=== PATIENT | female | born 1990 | race Caucasian/White ===

== ENCOUNTER 2017-07-30 18:20 | Emergency (ER) | payer OTHER | END 2017-07-30 18:54 | disposition left against medical advice (07) | LOC: ERS 18:20 | DX: Z53.21 Procedure and treatment not carried out due to patient leaving prior to being seen by health care provider (principal) ==

== ENCOUNTER 2018-05-28 17:13 | Emergency (ER) | payer OTHER ==
[2018-05-28 18:19] LABS: #Basophils 0.1 thou/uL (0.0-0.2); #Eosinphils 0.1 thou/uL (0.0-0.7); #Lymphocytes 2.4 thou/uL (1.20-3.40); #Monocytes 0.6 thou/uL (0.11-0.59); #Neutrophils 3.3 thou/uL (1.40-6.50); %Basophils 0.9 % (0.0-1.0); %Eosinophils 1.7 % (0.0-10.0); %Lymphocytes 36.7 % (21.0-51.0); %Neutrophils 51.7 % (42.0-75.0); Hemoglobin 13.6 g/dL (12.0-16.0); Mean Corpuscular HGB CONC 32.4 g/dL (32.0-36.0); Mean Corpuscular Hemoglobin 28.5 pg (27.0-31.0); Mean Corpuscular Volume 87.9 fL (78.0-98.0); Platelet Count 256 thou/uL (130-400); RBC Distribution Width 12.1 % (11.5-14.5); Red Blood Cell (RBC) Count 4.76 mill/uL (4.20-5.40); White Blood Cell (WBC) Count 6.4 thou/uL (4.8-10.8)
[2018-05-28 18:44] LABS: ALT (SGPT) 14 U/L (8-55); AST (SGOT) 14 U/L (5-34); Albumin 4.3 g/dL (3.5-5.0); Alkaline Phosphatase 56 U/L (40-150); Anion Gap 12 mmol/L (10-20); BUN (Urea Nitrogen) 11 mg/dL (7.0-18.7); Bilirubin, Total 0.4 mg/dL (0.2-1.2); Calc. Creatinine Clearance 0 mL/min (70-130); Calcium 9.2 mg/dL (7.8-10.44); Carbon Dioxide 20 mmol/L (22-29); Chloride 108 mmol/L (98-107); Estimated GFR-MDRD 89; Globulin 2.6 g/dL (2.4-3.5); Glucose 96 mg/dL (70-105); Potassium 3.8 mmol/L (3.5-5.1); Protein, Total 6.9 g/dL (6.0-8.3); Sodium 136 mmol/L (136-145)
[2018-05-28 19:47] LABS: Bilirubin Negative (Negative); Blood, Urine Negative (Negative); Clarity CLEAR (Clear); Glucose, Urine (Dipstick) Negative (Negative); Leukocyte Negative (Negative); Nitrite Negative (Negative); Protein, Urine (Dipstick) Negative (Neg-Trace); Urobilinogen 0.2 mg/dL (0.2-1.0)
[2018-05-28 20:15] LABS: BHCG - Serum Negative (NEGATIVE); Pregs Control Background? CLEAR/WHITE (CLR/WHITE); Pregs Control Bar Appear? YES (CONTROL BAR)
== END 2018-05-28 21:15 | disposition home or self-care (01) ==
LOC: ERS 17:13
DX: R11.2 Nausea with vomiting, unspecified (principal); R42 Dizziness and giddiness; F41.9 Anxiety disorder, unspecified; F32.9 Major depressive disorder, single episode, unspecified; Z79.01 Long term (current) use of anticoagulants; Z79.899 Other long term (current) drug therapy
CPT/HCPCS: 36415; 80053; 81003; 84703; 85025; 93005

== ENCOUNTER 2018-11-11 21:01 | Emergency (ER) | payer SELFPAY | END 2018-11-11 21:36 | disposition left against medical advice (07) | LOC: ERS 21:01 | DX: Z53.21 Procedure and treatment not carried out due to patient leaving prior to being seen by health care provider (principal) ==

== ENCOUNTER 2018-11-12 11:39 | Emergency (ER) | payer SELFPAY ==
[2018-11-12] MEDS ORDERED: HYDROcodone/Acetaminophen 7.5/325 mg Tablet ONE (12:50)
[2018-11-12] MEDS ORDERED: Dexamethasone 10 MG/ML VIAL ONE (12:50)
[2018-11-12] MEDS ORDERED: Bicillin LA 1.2 MILLION UNITS/2 ML SYRINGE ONE (12:51)
== END 2018-11-12 13:15 | disposition home or self-care (01) ==
LOC: ERS 11:39
DX: J02.0 Streptococcal pharyngitis (principal); F41.9 Anxiety disorder, unspecified; F17.210 Nicotine dependence, cigarettes, uncomplicated; E28.2 Polycystic ovarian syndrome
CPT/HCPCS: 87430; 96372; J0561; J1100

== ENCOUNTER 2018-12-04 19:50 | Emergency (ER) | payer SELFPAY ==
[2018-12-04] MEDS ORDERED: Dexamethasone 10 MG/ML VIAL ONE (21:26)
== END 2018-12-04 21:33 | disposition home or self-care (01) ==
LOC: ERS 19:50
DX: J02.0 Streptococcal pharyngitis (principal); F17.210 Nicotine dependence, cigarettes, uncomplicated; F41.9 Anxiety disorder, unspecified
CPT/HCPCS: 87081; 87430; 99283; J1100

== ENCOUNTER 2019-04-05 16:20 | Emergency (ER) | payer BC, OTHER ==
[2019-04-05] MEDS ORDERED: Fentanyl 100 MCG/2 ML VIAL ONE (17:13)
[2019-04-05] MEDS ORDERED: Ondansetron PF 4 MG/2 ML Vial ONE (17:13)
[2019-04-05 17:37] LABS: #Eosinphils 0.1 thou/uL (0.0-0.7); #Lymphocytes 1.3 thou/uL (1.20-3.40); #Monocytes 0.7 thou/uL (0.11-0.59); #Neutrophils 10.2 thou/uL (1.40-6.50); %Basophils 0.4 % (0.0-1.0); %Eosinophils 0.4 % (0.0-10.0); %Lymphocytes 10.2 % (21.0-51.0); %Monocytes 5.4 % (0.0-10.0); %Neutrophils 83.6 % (42.0-75.0); Mean Corpuscular HGB CONC 34.4 g/dL (32.0-36.0); Mean Corpuscular Hemoglobin 30.1 pg (27.0-31.0); Mean Corpuscular Volume 87.3 fL (78.0-98.0); Mean Platelet Volume 9.4 fL (7.4-10.4); Platelet Count 243 thou/uL (130-400); RBC Distribution Width 11.8 % (11.5-14.5); Red Blood Cell (RBC) Count 4.65 mill/uL (4.20-5.40); White Blood Cell (WBC) Count 12.2 thou/uL (4.8-10.8)
[2019-04-05 17:57] LABS: ALT (SGPT) 29 U/L (8-55); AST (SGOT) 17 U/L (5-34); Alkaline Phosphatase 42 U/L (40-150); Anion Gap 13 mmol/L (10-20); BUN (Urea Nitrogen) 8 mg/dL (7.0-18.7); Bilirubin, Total 0.3 mg/dL (0.2-1.2); Calc. Creatinine Clearance 0 mL/min (70-130); Calcium 9.1 mg/dL (7.8-10.44); Carbon Dioxide 22 mmol/L (22-29); Chloride 105 mmol/L (98-107); Estimated GFR-MDRD Greater than 90; Globulin 2.8 g/dL (2.4-3.5); Glucose 90 mg/dL (70-105); Lipase 26 U/L (8-78); Potassium 3.8 mmol/L (3.5-5.1); Protein, Total 6.8 g/dL (6.0-8.3); Sodium 136 mmol/L (136-145)
--- NOTE | 2019-04-05 18:18 | ULT ---
EXAM: Abdominal ultrasound complete: HISTORY: Extreme right upper quadrant pain, vomiting COMPARISON: None FINDINGS: The liver appears unremarkable. At least 2 nonmobile nonshadowing echogenic foci within the gallbladder probably polyps. No gallbladd er wall thickening or pericholecystic fluid. Negative Hill's sign. The common bile duct is Within normal limits. Visualized pancreas: Unremarkable. Visualized abdominal aorta: Unremarkable. Visualized IVC: Unremarkable. Visualized spleen: Unremarkable. Visualized kidneys: No evidence for hydronephrosis or solid or cystic mass. No mass, abscess, adenopathy, or abnormal fluid collection or other acute process. IMPRESSION: At least 2 nonmobile nonshadowing echogenic foci within the gallbladder probably polyps. No other sig nificant acute process.
--- NOTE | 2019-04-05 19:33 | ULT ---
Exam: OB ultrasound less than 14 weeks: HISTORY: Pain FINDINGS: There is some heterogeneous thickening of the posterior uterine myometrial region, I'm not certain wh ether this represents an area of contraction or could represent possibly a fibroid. A single viable intrauterine fetus is noted in variable presentation. Placenta is posterior and low l romain and could potentially cover the os at this point. BPD 1.5 cm--12 weeks 1 day Head circumference 5.5 cm--12 weeks 0 days Abdominal circumference 5.2 cm--12 weeks 1 day Femur length 0.7 cm--12 weeks 1 day. Gestational age average 12 weeks 0 days EDC 10/18/2019 IMPRESSION: Early single viable inferior . Some nonspecific heterogeneous thickening of the posterior ut erine wall. Somewhat low-lying posterior placenta. Follow-up examination in several months to evaluate for anatomy as well as evaluate placental p osition.
[2019-04-05 19:56] LABS: Bilirubin Negative (Negative); Blood, Urine Large (Negative); Clarity CLOUDY (Clear); Glucose, Urine (Dipstick) Negative (Negative); Leukocyte Small (Negative); Nitrite Negative (Negative); Protein, Urine (Dipstick) Negative (Neg-Trace); Urobilinogen 0.2 mg/dL (0.2-1.0)
[2019-04-05 20:02] LABS: Bacteria/HPF None Seen HPF (None Seen); Hyaline Casts/LPF 7-10 HYALINE CAST LPF (0-3 Hyaline); Pathc Cast-AUWi Flag 2.04 (0-2.49); RBC/HPF 21-50 HPF (0-3)
== END 2019-04-05 20:54 | disposition home or self-care (01) ==
LOC: ERS 16:20
DX: O99.89 Other specified diseases and conditions complicating pregnancy, childbirth and the puerperium (principal); R10.9 Unspecified abdominal pain; O99.341 Other mental disorders complicating pregnancy, first trimester; F41.9 Anxiety disorder, unspecified; O99.331 Smoking (tobacco) complicating pregnancy, first trimester; F17.210 Nicotine dependence, cigarettes, uncomplicated; Z79.899 Other long term (current) drug therapy; Z3A.12 12 weeks gestation of pregnancy
CPT/HCPCS: 76700; 76815; 80053; 81003; 81015; 83690; 85025; 87086; 96361; 96374; 96375; J2405; J3010

== ENCOUNTER 2019-05-23 14:40 | Outpatient (CLI) | payer OTHER ==
--- NOTE | 2019-05-23 15:46 | ULT ---
Obstetric sonogram HISTORY: evaluation. Second trimester. FINDINGS: Multiple transabdominal sonographic views of the gravid uterus show a single intrauterine g estation in cephalic presentation. Cervix is closed and 4.8 cm. Grade 0 placenta is posterior. spine and kidneys are intact as visualized. Four-chamber heart shows motion at 131 bpm. Amnioti c fluid is within normal limits. No gross intracranial abnormalities. Three-vessel cord shows a normal insertion. Measurements are as follows: Biparietal diameter 17 weeks 4 days. Head circumference 17 weeks 6 days. Abdominal circumference 18 weeks 0 days. Femoral length 17 weeks 2 days. [place]lock 17th percentile. IMPRESSION: Single viable intrauterine gestation with estimated gestational age based on today's sono gram of 17 weeks 5 days.
== END 2019-05-23 14:41 | disposition home or self-care (01) ==
LOC: ULT 14:40
PROVIDERS: ATTEND Family Medicine
DX: Z34.82 Encounter for supervision of other normal pregnancy, second trimester (principal); Z3A.17 17 weeks gestation of pregnancy
CPT/HCPCS: 76805

== ENCOUNTER 2019-06-02 11:15 | Day surgery (SDC) | payer OTHER ==
[2019-06-02 11:38] VITALS: BMI 26.5
[2019-06-02] MEDS ORDERED: hydrALAZINE 20 MG/ML VIAL SLOW IVP PRN (12:01)
--- NOTE | 2019-06-02 12:36 | ER ---
DATE OF SERVICE: 06/02/2019 TIME OF SERVICE: 12 noon. PRESENTING COMPLAINT: Lower back pain with a history of sciatica, at 20 weeks' gestation. HISTORY OF PRESENT ILLNESS: Ms. Mac Bean is a 28-year-old, 2, para 1, sees Dr. Donnie Bedoya at [facility]. She reports several weeks of worsening lower back pain, greater on the right than left. It has been told she has sacroiliac or sciatic issues. She has seen a chiropractor and received adjustments, which resulted in 2 days of relief of her pain. 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 She denies dysuria, bleeding, or rupture of membranes. She denies prior musculoskeletal issues, although she has a family history of fibromyalgia. 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 EDC is 10/21. She has had a spontaneous vaginal delivery x1. PAST MEDICAL HISTORY: None. PAST SURGICAL HISTORY: None. ALLERGIES: 1. PENICILLIN. 2. SULFISOXAZOLE. 3. WATERMELON. MEDICATIONS: vitamins. SOCIAL HISTORY: Denies tobacco, alcohol, or drug abuse. FAMILY HISTORY: Noncontributory. REVIEW OF SYSTEMS: Noncontributory. PHYSICAL EXAMINATION: GENERAL: White female, in no acute distress. VITAL SIGNS: Blood pressure 118/72, pulse 85, respirations 18, temperature 97.9. HEENT: Within normal limits. LUNGS: Clear to auscultation bilaterally. HEART: Regular rate and rhythm. ABDOMEN: Soft and nontender with a fundal height of 20 and FHTs of 150. BACK: She has no CVA tenderness noted. PELVIC: The patient points to point tenderness along her SI joints bilaterally as well as her symphysis pubis and the area of the round ligament on her left. VULVA: Without lesions. VAGINAL: Deferred. EXTREMITIES: Without clubbing, cyanosis, or edema. IMPRESSION: Musculoskeletal pain without obvious neurologic deficit at 20 weeks' gestation. PLAN: The patient was reassured regarding the safety of appropriate chiropractic intervention. The patient seems interested in short and/or long-term disability with her job. I informed the patient that unfortunately as an emergency provider, I would not be able to provide help with this, but that if she was interested, she should follow up with Dr. Bedoya. I encouraged followup and conversation with Dr. Bedoya about chiropractic, physical therapy, local heat therapy, and appropriate analgesics for pain during . Job ID: [id number]
== END 2019-06-02 12:02 | disposition home or self-care (01) ==
LOC: L&D/OP 11:15 → EDSTATUS 11:26 → L&D/OP 12:02
PROVIDERS: ATTEND Family Medicine
DX: O99.89 Other specified diseases and conditions complicating pregnancy, childbirth and the puerperium (principal); R10.31 Right lower quadrant pain; O99.332 Smoking (tobacco) complicating pregnancy, second trimester; F17.210 Nicotine dependence, cigarettes, uncomplicated; Z3A.20 20 weeks gestation of pregnancy; Z88.0 Allergy status to penicillin; Z88.2 Allergy status to sulfonamides; Z91.018 Allergy to other foods
CPT/HCPCS: 99282

== ENCOUNTER 2019-07-05 12:42 | Day surgery (SDC) | payer BC, OTHER ==
[2019-07-05] MEDS ORDERED: hydrALAZINE 20 MG/ML VIAL SLOW IVP PRN (15:04)
--- NOTE | 2019-07-05 16:34 | HP ---
PRIMARY OB: Donnie Bedoya MD. CHIEF COMPLAINT: Abdominal pain. HISTORY OF PRESENT ILLNESS: The patient is a 28-year-old, G2, P1 female with an intrauterine at 24 weeks and 4 days, who is presenting to Labor and Delivery after experiencing some uterine contractions over the course of an hour while at [place] shopping. The patient reports that they getting to be about 7 to 8 minutes apart and she was feeling lightheaded in conjunction with these contractions. She denies any uterine contractions prior to this event, and since coming to the hospital, the patient reports these contractions have disappeared. The patient denies any leaking of fluid or vaginal bleeding. Denies any urinary urgency or frequency. Denies any trauma or fall. Denies any recent illness including fever, cough, headache, significant chest pain or shortness of breath. The patient has been experiencing nausea and isolated vomiting more recently in her , but nothing persistent or severe. The patient denies diarrhea or constipation. She reports that she has been getting a rash on her legs since getting a tattoo. She reports that the rash is mainly on her legs. The patient reports that she has been experiencing some sciatic pains that had improved with chiropractic visit. PAST MEDICAL HISTORY: Anxiety. PAST SURGICAL HISTORY: Negative. ALLERGIES: PENICILLIN, SULFA, AND WATERMELON. MEDICATIONS: vitamins. SOCIAL HISTORY: Denies drug, alcohol, or tobacco use. FAMILY HISTORY: Noncontributory. REVIEW OF SYSTEMS: Per HPI. OB LABS: Unavailable at time of dictation. PHYSICAL EXAMINATION: VITAL SIGNS: Blood pressure is 110/70, heart rate of 90, respiratory rate of 60, temperature 97.7. GENERAL: She appears to be in no acute distress. She is alert, oriented, cooperative, and pleasant to interact. HEENT: Head, normocephalic and atraumatic. LUNGS: Clear to auscultation bilaterally. HEART: Has regular rate and rhythm. ABDOMEN: Gravid, soft, nontender. EXTREMITIES: Nontender, nonedematous. : Exam has been deferred. The patient has no CVA tenderness. No paravertebral tenderness. She does have SI joint tenderness, particularly on the right side. She also has a lot of tenderness in her medial or upper gluteal muscle on the right side. This rash on her lower extremities is very small 1 mm size papular rash that is intermittently found on her lower extremities. No evidence of no excoriations present. No ulcerative lesions. No pustular lesions. heart tracing shows the fetus with a baseline in the 130s with moderate long-term variability, appropriate for a 24-week gestation. Tocometer does not show any contractions. About 15 minutes was spent taking the patient to receive stretching and strengthening exercises for her muscles that may be affecting this sciatica like pain and strengthening her quads. ASSESSMENT AND PLAN: The patient is a 28-year-old female, G2, P1, with an intrauterine at 24 weeks and 4 days, who presented for uterine contractions that she had experienced while grocery shopping that has since dissipated spontaneously. The patient is comfortable going home and has been counseled to perform the stretching/strengthening exercises twice a day to avoid any stretching that causes severe joint pain. The patient plans to return to chiropractor in the near future for another visit. She has an appointment with Dr. Bedoya in a couple weeks. Fetus has reassuring for gestational age. The patient is being discharged home. Job ID: [id number]
== END 2019-07-05 14:15 | disposition home or self-care (01) ==
LOC: L&D/OP 12:42
PROVIDERS: ATTEND Family Medicine
DX: O47.02 False labor before 37 completed weeks of gestation, second trimester (principal); Z3A.24 24 weeks gestation of pregnancy; Z88.0 Allergy status to penicillin; Z88.2 Allergy status to sulfonamides; Z91.018 Allergy to other foods
CPT/HCPCS: 99282

== ENCOUNTER 2019-07-29 16:25 | Emergency (ER) | payer BC, OTHER ==
--- NOTE | 2019-07-29 17:03 | RAD ---
FRONTAL VIEW CHEST: 07/29/19 COMPARISON: 07/29/15. INDICATION: Emergency exam. FINDINGS: There is no consolidation, effusion, or pneumothorax. Cardiac silhouette is normal in size. Osseous s tructures are intact. IMPRESSION: No focal consolidation. POS: [facility]
== END 2019-07-29 17:35 | disposition home or self-care (01) ==
LOC: ERS 16:25
DX: O99.89 Other specified diseases and conditions complicating pregnancy, childbirth and the puerperium (principal); R07.89 Other chest pain; O99.342 Other mental disorders complicating pregnancy, second trimester; F41.9 Anxiety disorder, unspecified; F32.9 Major depressive disorder, single episode, unspecified; Z87.891 Personal history of nicotine dependence; Z3A.28 28 weeks gestation of pregnancy
CPT/HCPCS: 71045; 93005

== ENCOUNTER 2019-07-29 17:46 | Day surgery (SDC) | payer BC, OTHER ==
[2019-07-29 18:16] VITALS: BP 124/57; TEMP 98.6
[2019-07-29 18:25] VITALS: BMI 29.2
[2019-07-29] MEDS ORDERED: hydrALAZINE 20 MG/ML VIAL SLOW IVP PRN (19:02)
--- NOTE | 2019-07-30 09:53 | PRG ---
DATE OF SERVICE: 07/29/2019 PRIMARY ELECT[employer]IANS TOP HELPER: Dr. Donnie Bedoya. CHIEF COMPLAINT: Dizziness and chest pain x1 day. HISTORY OF PRESENT ILLNESS: The patient is a 28-year-old female, G2 and P1, with an intrauterine at 28 weeks' gestation, presenting to the emergency room today after experiencing one episode of chest pain and dizziness while washing dishes. The patient reports that she has had visual changes, felt lightheadedness, feeling faint with numbness over her body, and some of lower abdominal pain. She does admit to a history of anxiety and recognizes that the symptoms at times are related to that. She was concerned because the symptoms began suddenly. She was seen in the ER. Workup in the ER included a chest x-ray, which did not demonstrate any acute findings, a normal EKG, and was diagnosed with anxiety, likely exacerbated with stressors at home. The patient was then brought to Labor and Delivery to evaluate the status of the fetus prior to discharge. Upon arrival, the patient reports the many of her symptoms had nearly resolved. She denied any uterine bleeding, leakage of fluid, any headache, chest pain, shortness of breath, nausea, vomiting, diarrhea. She does report constipation at times. She denies any new rashes, hip problems, knee problems, or muscle weakness. PAST MEDICAL HISTORY: Includes generalized anxiety disorder and history of nephrolithiasis. PAST SURGICAL HISTORY: Negative. SOCIAL HISTORY: Denies drug, alcohol, or tobacco use. ALLERGIES: BACTRIM, PENICILLIN, AND WATERMELON. CURRENT MEDICATIONS: Tylenol 3 for SI joint pain. OBSTETRICS LABORATORY DATA: Unavailable at time of dictation. REVIEW OF SYSTEMS: Per HPI. PHYSICAL EXAMINATION: VITAL SIGNS: Blood pressure 124/57, heart rate of 85, respiratory rate 18, saturating 100% on room air, and temperature 98.6. GENERAL: She appears to be in no acute distress. She is alert, oriented, cooperative, and pleasant to interact with. HEAD: Normocephalic and atraumatic. ABDOMEN: Gravid and soft. EXTREMITIES: Nontender and nonedematous. heart tracing shows the fetus with a baseline in the 140s with moderate long-term variability, appropriate for 28 weeks' gestation. Tocometer, free of any contractions. ASSESSMENT AND PLAN: The patient is a 28-year-old multiparous female with an intrauterine at 28 weeks, who presented to the ER for chest pain and shortness of breath that had been released and here for monitoring of the fetus. There were no obstetric complaints or concerns. The patient has been released with reassurance and has been counseled to follow up with her primary OB as scheduled. Job ID: [id number]
== END 2019-07-29 19:49 | disposition home or self-care (01) ==
LOC: L&D/OP 17:46
PROVIDERS: ATTEND Family Medicine
DX: O99.89 Other specified diseases and conditions complicating pregnancy, childbirth and the puerperium (principal); R42 Dizziness and giddiness; R07.9 Chest pain, unspecified; R06.02 Shortness of breath; R10.30 Lower abdominal pain, unspecified; H53.9 Unspecified visual disturbance; R20.0 Anesthesia of skin; O99.343 Other mental disorders complicating pregnancy, third trimester; F41.1 Generalized anxiety disorder; Z3A.28 28 weeks gestation of pregnancy; Z88.0 Allergy status to penicillin; Z88.2 Allergy status to sulfonamides; Z91.018 Allergy to other foods
CPT/HCPCS: 99282

== ENCOUNTER 2019-09-06 13:37 | Day surgery (SDC) | payer OTHER ==
[2019-09-06 14:07] VITALS: BMI 31.1
[2019-09-06] MEDS ORDERED: hydrALAZINE 20 MG/ML VIAL SLOW IVP PRN (14:50)
--- NOTE | 2019-09-06 14:53 | PDOC.FPROB ---
FMR OB H&P: HPI - History of Present Illness Chief Complaint: dizziness, lightheadedness Indentification: 28 y/o @ 33.4 WGA History of Present Illness: Presents with 1 week of dizziness, lightheadedness, swelling, and intermittent lower abdominal pain. She endorses movement, denies ctx, LOF, vaginal bleeding, vaginal d/c, RUQ pain, vision changes. She does reports headaches when she gets the dizziness. She has had no complications during this , but she checks her BP's regularly. She reports this AM her systolic was 107 and this afternoon it was 130 so she became concerned that this BP was higher and wanted to get checked out. She also reports that she can feel her cervix dilating. Primary Care Physician: Dr. Bedoya FMR OB H&P: Current - Care : 2 Para: 1001 Gestational age: 33.4 FMR OB H&P: History - Past Medical History PMH: None - OB History OB History: 1 prior term - Surgical History Sx History: None - Social History Social History: Denies tobacco, EtOH, or drug use - Family History Family History: Denies FMR OB H&P: Medications - Current Home Medications: Medication Instructions Recorded Confirmed Type Acetaminophen With Codeine 1 tablet PO Q6HR PRN 07/29/19 07/29/19 History [Tylenol with Codeine #3] Allergies/Adverse Reactions: Allergies Allergy/AdvReac Type Severity Reaction Status Date / Time Penicillins Allergy Rash Verified 09/06/19 14:03 sulfamethoxazole Allergy Rash Verified 09/06/19 14:03 [From Bactrim] trimethoprim [From Bactrim] Allergy Rash Verified 09/06/19 14:03 watermelon Allergy Anaphylaxis Verified 09/06/19 14:03 FMR OB H&P: ROS - Review of Systems General: denies: fever/chills, weight/appetite/sleep changes Eyes: denies: vision changes, double vision ENT: denies: nasal congestion, sore throat Cardiovascular: reports: edema. denies: chest pain Respiratory: denies: cough, shortness of breath Gastrointestinal: reports: abdominal pain. denies: nausea Genitourinary (Female): denies: dysuria, hematuria, vaginal discharge, vaginal bleeding, contractions Neurologic: denies: numbness, weakness Integumentary: denies: itching, rash FMR OB H&P: Vital Signs - Maternal Vital signs: BP 104/74, HR 103, RR 16, Temp 97.8 - Heart Tones Baseline: 130 Variability: moderate Acceleration: present Deceleration: absent Hall contractions every: none FMR OB H&P: Physical Exam - Physical Exam General: NAD, awake, alert and oriented HEENT: MMM, conjunctiva clear, grossly normal vision, grossly normal hearing Neck: supple, no LAD Heart: pulses present, no edema General: no respiratory distress Abdomen: soft, gravid Neurological: no clonus, no focal deficit Skin: good tugor, capillary refill <2 seconds - Pelvic Exam SVE: closed/thick/high FMR OB H&P: A/P - Problem List (1) Lightheadedness Current Visit: Yes Status: Acute Code(s): R42 - DIZZINESS AND GIDDINESS Assessment and Plan: Pt reports dizziness and lightheadedness over the past week with associated increased cravings of ice. Vital signs stable with no concern for Pre-eclampsia with normal BP's -Will check CBC to r/o anemia -Encouraged good PO hydration -Reassured pt about normal symptoms of (2) Current Visit: Yes Status: Acute Qualifiers: Weeks of gestation: 33 weeks Qualified Code(s): Z3A.33 - 33 weeks gestation of Assessment and Plan: Cervical check was closed/thick/high -Gave pt labor precautions -Continue routine OB f/u with Dr. Bedoya Disposition: d/c home pending CBC results Discussion: Date/Time: 09/06/19 1450 This H&P was discussed with Dr. Fletcher who agrees with the above documentation and plan. Signature: Loretta Henderson MD, PGY-3
--- NOTE | 2019-09-06 15:06 | HP ---
TIME OF EVALUATION: Roughly 1430 hours to 1445 hours. LOCATION: Labor and Delivery triage bed. CHIEF COMPLAINT: "Possible dilation" and "high blood pressure" at home (130/80). Patient of Dr. Donnie Bedoya. HISTORY OF PRESENT ILLNESS: This is a 28-year-old, G2, P1, at 33 weeks and 4 days, who states that she has been having dizziness for the last couple of days. She has been checking her blood pressure at home, although she does not report that her physician instructed her to do so, nor does she have a history of hypertension. Her blood pressure was 107 systolic to 130 systolic over 80s and she felt that she should be checked out. She also has symptoms of dizziness, but no loss of consciousness or vertigo. She has no visual changes. REVIEW OF SYSTEMS: Complete review of systems was checked and is otherwise negative unless specified in the HPI. PAST MEDICAL HISTORY: Negative. PAST SURGICAL HISTORY: Noncontributory. OB HISTORY: She has had a vaginal delivery in the past. ALLERGIES: PENICILLIN, SULFA, TRIMETHOPRIM, AND SHE STATES THAT SHE IS ALLERGIC TO WATERMELON. PHYSICAL EXAMINATION: VITAL SIGNS: Her blood pressure is 104/74. She is afebrile. Pulse is in the 90s. GENERAL: Clinically, she is in no acute distress. ABDOMEN: Soft and nontender. On perineal inspection, there is no gross evidence of bleeding or leakage of fluid. cervical exam is pending nurse RN check. On the monitor, heart tones in the 130s to 140s and they are reactive. No contraction pattern on tocodynamometer. LABORATORY DATA: Labs ordered, I have ordered a CBC. ASSESSMENT: This is a 28-year-old, G2, P1, at 33 weeks and 4 days with nonspecific symptoms, who thought that she was dilating. She was concerned of her blood pressure from home, but her blood pressure here is normal. PLAN: 1. Reassurance given. 2. No evidence of preeclampsia at this time. 3. We will order a CBC and check her cervix per protocol. 4. No evidence of need for intervention at this time. 5. The patient was seen by Dr. Loretta Henderson as well. I have seen the patient at bedside. Job ID: [id number]
[2019-09-06 15:40] LABS: #Eosinphils 0.1 thou/uL (0.0-0.7); #Monocytes 1.2 thou/uL (0.11-0.59); %Basophils 0.4 % (0.0-1.0); %Eosinophils 1.1 % (0.0-10.0); %Lymphocytes 17.9 % (21.0-51.0); %Monocytes 10.1 % (0.0-10.0); %Neutrophils 70.4 % (42.0-75.0); Hemoglobin 11.4 g/dL (12.0-16.0); Mean Corpuscular HGB CONC 33.8 g/dL (32.0-36.0); Mean Corpuscular Hemoglobin 28.5 pg (27.0-31.0); Mean Corpuscular Volume 84.4 fL (78.0-98.0); Mean Platelet Volume 9.5 fL (7.4-10.4); Platelet Count 237 thou/uL (130-400); RBC Distribution Width 11.7 % (11.5-14.5); Red Blood Cell (RBC) Count 4.01 mill/uL (4.20-5.40); White Blood Cell (WBC) Count 11.3 thou/uL (4.8-10.8)
--- NOTE | 2019-09-06 15:53 | PDOC.BPN ---
- Brief Progress Note CBC came back with no concern for anemia causing her symptoms. Counseled pt about normal signs and symptoms of and to increase PO hydration. Counseled to stand slowly when moving from sitting to standing. Continue f/u with Dr. Bedoya d/c home
== END 2019-09-06 15:55 | disposition home or self-care (01) ==
LOC: EEVIPCON 13:37 → L&D/OP 13:37
PROVIDERS: ATTEND Family Medicine
DX: O99.89 Other specified diseases and conditions complicating pregnancy, childbirth and the puerperium (principal); R42 Dizziness and giddiness; R10.30 Lower abdominal pain, unspecified; Z3A.33 33 weeks gestation of pregnancy; Z88.0 Allergy status to penicillin; Z88.2 Allergy status to sulfonamides; Z88.8 Allergy status to other drugs, medicaments and biological substances; Z91.018 Allergy to other foods
CPT/HCPCS: 36415; 85025

== ENCOUNTER 2019-09-19 20:24 | Inpatient (IN) | payer OTHER ==
[2019-09-19 20:59] VITALS: BMI 31.1
[2019-09-19 21:34] LABS: Amnisure Internal Control QC ACCEPTABLE (ACCEPTABLE); Amnisure Test No Membranes Rupture (No Rupture)
--- NOTE | 2019-09-19 22:44 | PDOC.FPROB ---
FMR OB H&P: HPI - History of Present Illness Chief Complaint: Gush of fluid Indentification: at 35 weeks History of Present Illness: 28 yo at ~35.4 weeks here for gush of fluid. Around 5 pm, sneezed and gush of fluid that soaked through her pants. Since then has felt she has been leaking. Denies VB/VD. Completed monostat course for yeast infection 6 weeks ago , since then no issues. Denies CTX, endorses FM. No other concerns at this time. Primary Care Physician: Dr. Bedoya FMR OB H&P: Current - Care : 2 Para: 1 Gestational age: 35.4 Due date: 10/20/19 - OB Labs Blood type: unknown RH: unknown Antibody Screen: unknown HIV: unknown RPR: unknown HepBsAg: unknown Quad screen: unknown Urine drug screen: not done Gonorrhea: unknown Chlamydia: unknown GBS: unknown FMR OB H&P: History - Past Medical History PMH: Right sciatic nerve pain, chronic - OB History OB History: 1. Term at 39 weeks - Surgical History Sx History: None - Social History Social History: Denies TAD FMR OB H&P: Medications - Current Allergies/Adverse Reactions: Allergies Allergy/AdvReac Type Severity Reaction Status Date / Time Penicillins Allergy Rash Verified 09/06/19 14:03 sulfamethoxazole Allergy Rash Verified 09/06/19 14:03 [From Bactrim] trimethoprim [From Bactrim] Allergy Rash Verified 09/06/19 14:03 watermelon Allergy Anaphylaxis Verified 09/06/19 14:03 FMR OB H&P: ROS - Review of Systems General: denies: fever/chills, weight/appetite/sleep changes ENT: denies: nasal congestion, rhinorrhea, frequent nose bleed Respiratory: denies: cough, shortness of breath Gastrointestinal: denies: abdominal pain, cramping, nausea, diarrhea, constipation, dark black tarry stools Genitourinary (Female): reports: vaginal discharge. denies: dysuria, vaginal pain, vaginal bleeding, contractions, vaginal pressure Neurologic: denies: seizures, weakness Integumentary: denies: itching, rash, lesions Endocrine: denies: cold intolerance, heat intolerance Psychological: reports: anxiety. denies: depression, hallucinations (denies SI/ HI) FMR OB H&P: Vital Signs - Maternal Vital signs: Vital Signs - First Documented Temp Pulse Resp BP Pulse Ox 98.1 F 95 16 115/73 98 09/19/19 20:53 09/19/19 20:53 09/19/19 20:53 09/19/19 20:53 09/19/19 20:53 - Heart Tones Baseline: 140 Variability: moderate Acceleration: present Deceleration: absent [place] contractions every: uterine irritability FMR OB H&P: Physical Exam - Physical Exam General: NAD, awake, alert and oriented HEENT: normocephalic and atraumatic, EOMI, MMM, conjunctiva clear, no scleral icterus, grossly normal vision Neck: supple, FROM, trachea midline Heart: RRR, normal S1/S2 General: CTAB, no respiratory distress, good air movement, no wheezing, no retractions Abdomen: soft, gravid, fundus(cm), non-tender Musculoskeletal: normal gait and station, pulses present, FROM in all four extremities, no misalignment/asymmetry Neurological: sensation to pain,touch and proprioception grossly normal, no clonus, no tremor Skin: no rash, good tugor, capillary refill <2 seconds Lymphatic: no unusual bruising or bleeding Psychiatric: intact recent and remote memory, good judgement and insight, other (anxious mood) - Pelvic Exam Vulva: normal hair distribution Cervix: no masses SVE: patient did not tolerate cervical exam FMR OB H&P: Results - Labs Lab results: Laboratory Results - last 24 hr 09/19/19 21:10 Amnio Swab Test No Membranes Rupture FMR OB H&P: A/P - Problem List (1) Current Visit: No Status: Acute Qualifiers: Weeks of gestation: 33 weeks Qualified Code(s): Z3A.33 - 33 weeks gestation of Disposition: 1. sIUP at 35.4 weeks -FHT: reactive, reassuring, no CTX -SVE: Appears closed on speculum exam, watery discharge but unable to visualize cervix due to patient intolerance of exam, could be d/t infection, VP3 pending -Amnisure negative 2. Vaginal discharge -VP3, pending results 3. Anxious mood -Patient going through divorce. Recommended counseling, advised to discuss with PCP/OBGYN about referral for this -Denies SI/HI Discussed with Dr. Holt Discussion: Date/Time: 09/19/19 9153 This H&P was discussed with [] and [] who agree with the above documentation and plan. Addendum - Attending - Attending Attestation Date/Time: 09/20/19 9102 I personally evaluated the patient and discussed the management with Dr. Shannon I agree with the History, Examination, Assessment and Plan documented above with any addition or exceptions noted below. Pt reports persistent and significant lof vital 98.1 95 16 115/73 98% gu exam vary difficult. sse not tolerated. vaginal wall very irritated/tender, extensive plaque like discharge on wall, watery discharge, unable to place speculum sufficient to visualize cervix due to pain vulva/ labia without masses lesions or erythema bsus by resident - fanny 6cm formal us fanny 13 vp3 neg a/p pt on exam has clear evidence of a vaginitis. likely ai vulvovaginitis thought vp3 has returned neg. will treat with diflucan. lof: no clear objective evidence for rom. normal fanny on bsus, neg fanny, while there was some watery discharge on exam i hesitate to characterize it at pooling. will obs pt over night and repeat us in the morning. if unchanged pt will go home with diflucan to take in three days and a rx for amoxicillan for vaginitis. pt to f/u in one week with Dr Bedoya
[2019-09-19] MEDS ORDERED: hydrALAZINE 20 MG/ML VIAL SLOW IVP PRN (23:13)
--- NOTE | 2019-09-19 23:17 | PDOC.EVN ---
Event Note - Event Note Event Note: Discussed results with patient, negative VP3, however could have a desequamative vaginitis. Based on discharge & uncomfortability of exam will empirically treat with diflucan and amoxicillin. Admit for observation. Will get U/S for formal HANSEL measurement with repeat in morning. Pad count.
[2019-09-19] MEDS ORDERED: Fluconazole 100 MG TAB PO SCH (23:45)
--- NOTE | 2019-09-20 07:46 | ULT ---
OBSTETRICAL ULTRASOUND: INDICATION: rupture of membranes. COMPARISON: Prior OB ultrasound dated 05/23/2019. FINDINGS: There is a single live intrauterine gestation in vertex presentation. The placenta is posterior and to the maternal right. There is no evidence of previa. HANSEL is noted at 13.7 cm. The average gestational age by ultrasound is 34 weeks and 0 days with an estimated due date is 2019. The estimated clinical age is 35 weeks and 4 days with an estimated due date of 10/20/2019. The estimated weight is 2,437 gm +/- 261 gm (21st percentile). IMPRESSION: 1. Single live intrauterine gestation with size and dates as above. 2. Amniotic fluid index of 13.7 cm. POS: [facility]
[2019-09-20] MEDS ORDERED: Calcium Carbonate 500 MG ChewTAB PO SCH (09:00)
[2019-09-20] MEDS ORDERED: Promethazine HCl 25 MG/ML VIAL IM PRN (09:04)
[2019-09-20] MEDS ORDERED: NS / Oxytocin 40 units/1000ml 1,000 ML IV PRN (09:04)
[2019-09-20] MEDS ORDERED: Butorphanol Tartrate 1 MG/ML VIAL SLOW IVP PRN (09:04)
[2019-09-20] MEDS ORDERED: Lidocaine 1% (PF) 30 ML VIAL SC PRN (09:04)
[2019-09-20] MEDS ORDERED: Ibuprofen 800 MG TAB PO PRN (09:04)
[2019-09-20] MEDS ORDERED: CEFAZOLIN 2 GM in Premix Bag 1 BAG IVPB SCH (09:15)
--- NOTE | 2019-09-20 09:26 | ULT ---
Exam: Limited OB ultrasound: HISTORY: Evaluate HANSEL COMPARISON: 09/19/2019 FINDINGS: Single viable intrauterine fetus in vertex presentation. Left-sided placenta. heart rate 150 bp m. HANSEL equals 7.6 which has decreased from prior HANSEL of 13.7 Gestational age average 33 weeks 4 days EDC 11/04/2019 Estimated weight 2409 g IMPRESSION: HANSEL equals 7.6 which has decreased from yesterday's examination at which time it was 13.7.
--- NOTE | 2019-09-20 09:31 | PDOC.BPN ---
<Mariangel Knox - Last Filed: 09/20/19 09:26> - Brief Progress Note 09/20/2019 at 9:30 AM HANSEL repeated this AM and noted to be 7 cm, down from 13 cm last night. Patient' s story convincing for rupture. While amnisure was negative, sterile speculum exam by night team difficult due to patient tolerance. Possible pooling seen on sterile speculum vs. vaginitis. Treated for candidiasis. Given decreasing HANSEL and story suspicious for rupture, will proceed with treatment and management for PPROM. Discussed findings and plan with patient. Will give steroids and treat for GBS with ancef. Patient has allergy to penicillin which she describes as very mild. Given this history, will give ancef slowly and switch to vancomycin if not tolerated. Will admit patient to L&D. Will notify patient's primary OB provider. Patient agreeable with plan as discussed. Mariangel Knox, DO PGY-3 <Josué Myers - Last Filed: 09/20/19 11:05> Addendum - Attending - Attending Attestation Date/Time: 09/20/19 1103 I personally evaluated the patient and discussed the management with Dr. Muller. Strong hx. for SROM with decreased HANSEL this AM. Will adfmit for stewroids for FLM and start ABX. Dr. Bedoya notified. I agree with the History, Examination, Assessment and Plan documented above.
[2019-09-20] MEDS: Acetaminophen 500 MG TAB PO PRN (10:13)
[2019-09-20] MEDS: Lactated Ringer's 1,000 ML IV SCH ×2 (10:15→15:47)
[2019-09-20] MEDS: ceFAZolin 1 GM/D5W 1 GM in Premix Bag 1 BAG IVPB SCH ×2 (10:37→18:58)
[2019-09-20] MEDS: Betamet Acet/Betamet Na Ph 30 MG/5 ML VIAL IM SCH (10:38)
[2019-09-20 10:56] LABS: Hemoglobin 11.6 g/dL (12.0-16.0); Mean Corpuscular HGB CONC 33.8 g/dL (32.0-36.0); Mean Corpuscular Hemoglobin 28.3 pg (27.0-31.0); Mean Corpuscular Volume 83.9 fL (78.0-98.0); Mean Platelet Volume 10.6 fL (7.4-10.4); Platelet Count 230 thou/uL (130-400); RBC Distribution Width 12.3 % (11.5-14.5); White Blood Cell (WBC) Count 11.9 thou/uL (4.8-10.8)
[2019-09-20 11:39] LABS: HBSAg Index 0.14 S/CO (0-0.99); Hep B Surf Ag Non-Reactive S/CO (NonReactive); Syphilis Antibody Nonreactive (Nonreactive); Syphilis Antibody Index 0.03 S/CO (<1.00 Non-Reactive)
[2019-09-20] MEDS ORDERED: Calcium Carbonate 500 MG ChewTAB PO PRN (13:11)
[2019-09-20] MEDS: Ondansetron PF 4 MG/2 ML Vial IVP PRN (14:32)
[2019-09-20] MEDS ORDERED: CEFAZOLIN 1 GM in Sodium Chloride 0.9% 100 ML IVPB SCH (16:00)
[2019-09-20] MEDS ORDERED: FLU VACC QS2019-20(6MOS UP)/PF 60 MCG/0.5 ML SYRINGE IM ONE (21:00)
[2019-09-21] MEDS: Acetaminophen 500 MG TAB PO PRN (08:17)
--- NOTE | 2019-09-21 08:56 | ULT ---
OB ULTRASOUND FOLLOWUP: COMPARISON: 09/20/2019. HISTORY: Followup HANSEL, uncertain if membranes are ruptured. FINDINGS: Single viable fetus in vertex presentation. Primarily left-sided placenta. Amniotic fluid index=6.5 cm. heart rate 125 b.p.m. Cervical length 3.5 cm. Overall gestational age average 33 weeks 5 days, EDC 11/04/2019. IMPRESSION: Amniotic fluid index 6.5 cm. Cervical length 3.5 cm. POS: [facility]
[2019-09-21] MEDS: Lactated Ringer's 1,000 ML IV SCH ×2 (09:01→18:07)
[2019-09-21] MEDS: Betamet Acet/Betamet Na Ph 30 MG/5 ML VIAL IM SCH (10:51)
[2019-09-21] MEDS: ceFAZolin 1 GM/D5W 1 GM in Premix Bag 1 BAG IVPB SCH ×2 (10:56→18:54)
[2019-09-21] MEDS: Famotidine 20 MG TAB PO SCH (16:26)
--- NOTE | 2019-09-21 20:36 | PDOC.EVN ---
Event Note - Event Note Event Note: I spoke with Dr. Myers this AM and assumed care. I was present on the unit when she was admitted and discussed her case with Dr. Holt at that time as well. She has a story for rupture but negative amnisure and did not tolerate speculum exam due to present vaginitis. HANSEL yesterday was 11. This AM was only 7. Because of her history, we agreed to give steroids and antibiotics for pre- term status. After thorough review, I am not certain she is ruptured. My plan is to observe her for leakage today, repeat the HANSEL tomorrow and if not increased then we will consider her ruptured and proceed with induction of labor for PPROM not in labor. We will begin 48 hours after the steroid dose, if that is the case.
--- NOTE | 2019-09-21 20:40 | PDOC.LDPN ---
Labor & Delivery Progress Note - Subjective Subjective: comfortable (No contractions reported, she did ask for a pad this AM and I looked at it and there was some clear fluid present) - Objective Vital signs reviewed and normal: yes General: NAD, resting SVE: Not examined due to suspected PPROM FHT: category 1, variability present [place] contractions every: None Other exam findings: Clear fluid on her pad Procedures: U/S for HANSEL this AM was decreased at 7 - Assessment (1) PROM (premature rupture of membranes) Code(s): O42.90 - TESS ROM, 7TH0 BETW RUPT & ONST LABR, UNSP WEEKS OF GEST Current Visit: Yes Status: Acute Plan: continue plan of care (Second dose of steroid today at 1045. Continue antibiotics - Ancef - tolerating well. Discussed with Dr. Melendez and we will plan to start pitocin in the AM.)
[2019-09-21] MEDS ORDERED: NS w/ Oxytocin 10 units 500 ML IV SCH (22:00)
[2019-09-22] MEDS: Acetaminophen 500 MG TAB PO PRN ×3 (01:12→12:07)
[2019-09-22] MEDS: Ondansetron PF 4 MG/2 ML Vial IVP PRN (07:08)
[2019-09-22] MEDS: Famotidine 20 MG TAB PO SCH (10:02)
[2019-09-22] MEDS: ceFAZolin 1 GM/D5W 1 GM in Premix Bag 1 BAG IVPB SCH ×3 (10:02→23:19)
--- NOTE | 2019-09-22 12:33 | PDOC.EVN ---
Event Note - Event Note Event Note: Pt seen and examined. FHT category I. Pitocin started for IOL for PPROM. Epidural when uncomfortable. Minimize SVE due to prolonged ROM. Continue abx.
--- NOTE | 2019-09-22 12:34 | PDOC.LDPN ---
Labor & Delivery Progress Note - Subjective Subjective: comfortable - Objective Vital signs reviewed and normal: yes General: NAD, breathing through contractions (CTX not strong yet) Uterine fundus: non tender SVE: 2/60/-2 Dilation: 2 Effacement: 50% Station: -2 FHT: category 1, variability present [place] contractions every: 2-4 minutes - Assessment (1) PROM (premature rupture of membranes) Code(s): O42.90 - TESS ROM, 7TH0 BETW RUPT & ONST LABR, UNSP WEEKS OF GEST Current Visit: Yes Status: Acute Qualifiers: PROM onset of labor timing: onset of labor more than 24 hours following rupture PROM gestational age: -third trimester Qualified Code(s): O42.113 - premature rupture of membranes, onset of labor more than 24 hours following rupture, third trimester Plan: continue plan of care, labor augmentation, pitocin for augmentation ( Continue abx for pre-term status and prolonged ROM)
[2019-09-22] MEDS: Lactated Ringer's 1,000 ML IV SCH ×3 (14:45→23:19)
[2019-09-22] MEDS ORDERED: Fentanyl 4 mcg/Bup 0.1% Cadd 100 ML ONE (14:54)
[2019-09-22] MEDS ORDERED: Fentanyl 100 MCG/2 ML VIAL ONE (15:09)
[2019-09-22] MEDS ORDERED: Lactated Ringer's 500 ML IV PRN (15:31)
[2019-09-22] MEDS ORDERED: Acetaminophen 325 MG TAB PO PRN (15:31)
[2019-09-22] MEDS ORDERED: Naloxone HCl 0.4 mg/ml Vial IVP PRN ×2 (15:31)
[2019-09-22] MEDS ORDERED: Promethazine HCl 25 MG/ML VIAL IM PRN (15:31)
[2019-09-22] MEDS ORDERED: ePHEDrine/0.9% NaCl/PF SYRINGE 50 mg/10 ml SLOW IVP PRN (15:31)
[2019-09-22] MEDS ORDERED: diphenhydrAMINE 50 MG/ML VIAL IVP PRN (15:31)
[2019-09-22] MEDS ORDERED: Ondansetron PF 4 MG/2 ML Vial IVP PRN (15:31)
[2019-09-22] MEDS ORDERED: Fentanyl 4 mcg/Bupivacaine 0.1% Cassette 100 ML EPIDURAL SCH (15:45)
[2019-09-22] MEDS ORDERED: Communication Order-Pharmacy FS SCH (15:45)
--- NOTE | 2019-09-22 21:45 | PDOC.OPDEL ---
OB Operative/Delivery Note Delivery Dr/Surgeon: Aureliano Pre-Delivery Diagnosis: ruptured membrane (PPROM) Procedure/Post Delivery Dx: spontaneous vaginal delivery (Head OA, tight nuchal cord x1, bloody fluid suctioned from the mouth and nares, shoulders and body easily followed.) Weeks gestation: 35 Anesthesia: epidural - Findings A Sex: female Weight: 5 lb 2 oz - 1 min: 7 - 5 min: 9 - Additional Findings/Plan Placenta delivered: spontaneous Repaired Obstetrical Laceration: none Post delivery plan: routine recovery
[2019-09-22] MEDS ORDERED: Benzocaine-Menthol 82.5 ML CAN TOP PRN (23:31)
[2019-09-22] MEDS ORDERED: NS / Oxytocin 40 units/1000ml 1,000 ML IV SCH (23:31)
[2019-09-22] MEDS ORDERED: Lanolin Ointment 7 GM TUBE TOP PRN (23:31)
[2019-09-22] MEDS ORDERED: hydrALAZINE 20 MG/ML VIAL SLOW IVP PRN (23:31)
[2019-09-22] MEDS ORDERED: HYDROcodone/Acetaminophen 5/325 mg Tablet PO PRN (23:31)
[2019-09-22] MEDS ORDERED: Bisacodyl 10 MG SUPP PR PRN (23:31)
[2019-09-22] MEDS ORDERED: Milk Of Magnesia 30 ML UDCUP PO PRN (23:31)
[2019-09-23 06:05] LABS: #Lymphocytes 2.7 thou/uL (1.20-3.40); #Monocytes 2.3 thou/uL (0.11-0.59); #Neutrophils 14.4 thou/uL (1.40-6.50); %Basophils 0.1 % (0.0-1.0); %Eosinophils 0.2 % (0.0-10.0); %Monocytes 11.8 % (0.0-10.0); %Neutrophils 73.9 % (42.0-75.0); Hemoglobin 9.5 g/dL (12.0-16.0); Mean Corpuscular HGB CONC 32.2 g/dL (32.0-36.0); Mean Corpuscular Volume 83.8 fL (78.0-98.0); Mean Platelet Volume 9.9 fL (7.4-10.4); Platelet Count 244 thou/uL (130-400); RBC Distribution Width 12.3 % (11.5-14.5); Red Blood Cell (RBC) Count 3.51 mill/uL (4.20-5.40); White Blood Cell (WBC) Count 19.4 thou/uL (4.8-10.8)
[2019-09-23] MEDS ORDERED: Adacel (T-DAP) 0.5 ML SYRINGE IM ONE (09:00)
[2019-09-23] MEDS: Docusate Calcium (SURFAK) 240 MG CAP PO SCH (12:34)
[2019-09-23] MEDS: Ferrous Sulfate 325 MG TAB PO SCH (12:36)
[2019-09-23] MEDS: Ibuprofen 800 MG TAB PO SCH ×2 (12:36→20:35)
[2019-09-24] MEDS: Ibuprofen 800 MG TAB PO SCH ×2 (02:31→04:28)
[2019-09-24] MEDS: Docusate Calcium (SURFAK) 240 MG CAP PO SCH ×2 (02:32→08:19)
[2019-09-24] MEDS: Ferrous Sulfate 325 MG TAB PO SCH ×2 (02:32→08:19)
--- NOTE | 2019-09-24 08:43 | PDOC.PP ---
Post Progress Note Post Day #: 1 Subjective: Doing well. going well. Lochia normal. PO intake tolerated: yes Flatus: yes Ambulation: yes Vital Signs (12 hours) Temp Pulse Resp BP BP Pulse Ox 09/24/19 04:00 98.1 F 63 20 118/56 L 98 09/24/19 01:20 97.9 F 64 18 98/52 L 98 Weight Weight 170 lb - Physical Examination General: NAD Cardiovascular: no m/r/g, RRR Respiratory: clear to auscultation bilaterally, non-labored breathing Abdominal: + bowel sounds, lochia, no distention, appropriately TTP Result Diagrams: 09/23/19 05:50 Additional Labs: Post Labs Blood Type A POSITIVE 09/20/19 10:38 Hep Bs Antigen Non-Reactive S/CO (NonReactive) 09/20/19 10:38 (1) PROM (premature rupture of membranes) Code(s): O42.90 - TESS ROM, 7TH0 BETW RUPT & ONST LABR, UNSP WEEKS OF GEST Status: Acute Qualifiers: PROM onset of labor timing: onset of labor more than 24 hours following rupture PROM gestational age: -third trimester Qualified Code(s): O42.113 - premature rupture of membranes, onset of labor more than 24 hours following rupture, third trimester (2) Vaginal delivery Code(s): O80 - ENCOUNTER FOR FULL-TERM UNCOMPLICATED DELIVERY Status: Acute - Assessment/Plan Routine PP care D/C likely tomorrow
--- NOTE | 2019-09-24 08:44 | PDOC.PP ---
Post Progress Note Post Day #: 2 Subjective: No complaints. Routine PP course. PO intake tolerated: yes Flatus: yes Ambulation: yes Vital Signs (12 hours) Temp Pulse Resp BP BP Pulse Ox 09/24/19 04:00 98.1 F 63 20 118/56 L 98 09/24/19 01:20 97.9 F 64 18 98/52 L 98 Weight Weight 170 lb - Physical Examination General: NAD Cardiovascular: no m/r/g, RRR Respiratory: clear to auscultation bilaterally, non-labored breathing Abdominal: + bowel sounds, lochia, no distention, appropriately TTP Result Diagrams: 09/23/19 05:50 Additional Labs: Post Labs Blood Type A POSITIVE 09/20/19 10:38 Hep Bs Antigen Non-Reactive S/CO (NonReactive) 09/20/19 10:38 (1) PROM (premature rupture of membranes) Code(s): O42.90 - TESS ROM, 7TH0 BETW RUPT & ONST LABR, UNSP WEEKS OF GEST Status: Acute Qualifiers: PROM onset of labor timing: onset of labor more than 24 hours following rupture PROM gestational age: -third trimester Qualified Code(s): O42.113 - premature rupture of membranes, onset of labor more than 24 hours following rupture, third trimester (2) Vaginal delivery Code(s): O80 - ENCOUNTER FOR FULL-TERM UNCOMPLICATED DELIVERY Status: Acute - Assessment/Plan Routine care D/C home Rx for breastpump Ibuprofen and tylenol #3 for pain
[2019-09-24 08:54] VITALS: BP 97/50; TEMP 97.9
== END 2019-09-24 11:50 | disposition home or self-care (01) | DRG 807 ==
LOC: L&D/OP 20:24 → EEVIPCON 20:24 → L&D 09-20 09:14 → 3SW 09-23 03:09
PROVIDERS: ADMIT Family Medicine; ATTEND Family Medicine
PROC: 10E0XZZ Delivery of Products of Conception, External Approach (ICD-10-PCS; principal; 2019-09-22)
DX: O42.013 Preterm premature rupture of membranes, onset of labor within 24 hours of rupture, third trimester (principal); Z37.0 Single live birth; O69.1XX0 Labor and delivery complicated by cord around neck, with compression, not applicable or unspecified; Z3A.35 35 weeks gestation of pregnancy; O99.344 Other mental disorders complicating childbirth; F41.9 Anxiety disorder, unspecified; F32.9 Major depressive disorder, single episode, unspecified
CPT/HCPCS: 36415; 51702; 76815; 76816; 84112; 85025; 85027; 86780; 86850; 86900; 86901; 87340; 87480; 87510; 87660; 88307; 99285; J0690; J0702; J1200; J2405; J2590; J3010

== ENCOUNTER 2021-11-18 14:08 | Emergency (ER) | payer SELFPAY ==
[2021-11-18] MEDS ORDERED: Ketorolac Tromethamine 30 MG/ML VIAL ONE (14:34)
[2021-11-18 15:01] LABS: #Basophils 0.1 thou/uL (0.0-0.2); #Eosinphils 0.1 thou/uL (0.0-0.7); #Lymphocytes 2.3 thou/uL (1.20-3.40); #Monocytes 0.5 thou/uL (0.11-0.59); %Eosinophils 2.1 % (0.0-10.0); %Monocytes 8.8 % (0.0-10.0); %Neutrophils 50.1 % (42.0-75.0); Hemoglobin 14.1 g/dL (12.0-16.0); Mean Corpuscular HGB CONC 32.6 g/dL (32.0-36.0); Mean Corpuscular Hemoglobin 29.7 pg (27.0-31.0); Mean Platelet Volume 8.8 fL (7.4-10.4); Platelet Count 277 thou/uL (130-400); RBC Distribution Width 11.6 % (11.5-14.5); Red Blood Cell (RBC) Count 4.75 mill/uL (4.20-5.40); White Blood Cell (WBC) Count 5.9 thou/uL (4.8-10.8)
[2021-11-18 15:07] LABS: BHCG - Serum Negative (NEGATIVE); Bilirubin Negative (Negative); Blood, Urine Negative (Negative); Clarity Clear (Clear); Glucose, Urine (Dipstick) Normal (Negative); Ketone, Urine Negative (Negative); Leukocyte Negative Leu/uL (Negative); Nitrite Negative (Negative); Pregs Control Background? CLEAR/WHITE (CLR/WHITE); Pregs Control Bar Appear? YES (CONTROL BAR); Protein, Urine (Dipstick) Negative (Neg-Trace); Specific Gravity, Urine 1.014 (1.002-1.036); Urobilinogen Normal mg/dL (Less than 2)
[2021-11-18 15:42] LABS: ALT (SGPT) 15 U/L (8-55); AST (SGOT) 13 U/L (5-34); Albumin 4.3 g/dL (3.5-5.0); Anion Gap 8 mmol/L (10-20); BUN (Urea Nitrogen) 9 mg/dL (7.0-18.7); Bilirubin, Total 0.3 mg/dL (0.2-1.2); Calc. Creatinine Clearance 0 mL/min (70-130); Calcium 9.3 mg/dL (7.8-10.44); Carbon Dioxide 29 mmol/L (22-29); Chloride 104 mmol/L (98-107); Globulin 2.7 g/dL (2.4-3.5); Glucose 91 mg/dL (70-105); Lipase 37 U/L (8-78); Potassium 4.1 mmol/L (3.5-5.1); Sodium 137 mmol/L (136-145)
[2021-11-18 15:43] LABS: Alkaline Phosphatase 54 U/L (40-110)
== END 2021-11-18 17:30 | disposition home or self-care (01) ==
LOC: ERS 14:08
DX: K80.20 Calculus of gallbladder without cholecystitis without obstruction (principal); E28.2 Polycystic ovarian syndrome; Z87.442 Personal history of urinary calculi; Z87.891 Personal history of nicotine dependence
CPT/HCPCS: 76705; 80053; 81003; 83690; 84703; 85025; 96374; J1885